=== PATIENT | female | born 1950 | race Caucasian/White ===

== ENCOUNTER 2020-02-29 07:45 | Day surgery (SDC) | payer MEDICARE, SELFPAY ==
[2020-02-27 14:33] VITALS: BMI 33.5
[2020-02-29 08:00] VITALS: BP 95/82; PULSE 89; RESP 18; TEMP 36.1; O2SAT 96
[2020-02-29] MEDS: sodium chloride 0.9% 1,000 ML 30 ML IV (08:13)
--- NOTE | 2020-02-29 08:43 | ANES.PREANE2 ---
Pre-Anesthetic Assessment Pre-Anesthetic Assessment: Height/Weight: Height 1.68 m Weight 94.347 kg Temp Pulse Resp BP Pulse Ox 97.0 F L 89 18 95/82 96 02/29/20 08:00 02/29/20 08:00 02/29/20 08:00 02/29/20 08:00 02/29/20 08:00 Preop Diagnosis: Change in bowel habit Proposed Procedure: Operation Date: 02/29/20 09:00 Proposed Procedures p Colonoscopy 43192 Z12.11(Not Applicable) - Adalberto Rangel MD Last intake: Intake Last Liquid Date 02/28/20 Last Liquid Time 20:00 Last Solid Date 02/27/20 Social: Social History: No alcohol and No tobacco Exam: Pre-Anes Outpt Exam: alert, oriented x 3, clear to auscultation bilaterally and regular rate & rhythm Airway: Submandibular: WNL Cervical ROM: WNL MP: 2 Dentition: False (upper and lower) History/ROS: No significant history except as noted Pulmonary: Pulmonary: None reported CV/HEM: CV/HEM: HTN : : None reported Hepatic: Hepatic: None reported GI: GI: GERD (controlled) Metabolic: Metabolic: Hyperlipidemia Musc/skel: Musc/skel: OA/DJD Neuropsych: Neuropsych: None reported Anesthetic Plan: ASA status: 2 Anesthesia: Anesthesia Evaluation and MAC Risk of > 500 ml blood loss (7ml/kg in children): No Meds/Allergies Current Medications: Current Medications Generic Name Dose Route Start Last Admin Trade Name Freq PRN Reason Stop Dose Admin Sodium Chloride 1,000 mls @ 30 ml s/hr 02/29/20 08:00 02/29/20 08:13 Sodium Chloride 0.9% IV 30 mls/hr .Q24H RAMAKRISHNA Administration PFSH Anesthesia PFSH: Medical History Diabetes Diarrhea Hyperlipidemia Hypertension Palpitations Surgical History S/P YODIT (total abdominal hysterectomy) 02/2013 Family History Father CAD (coronary artery disease) Chronic kidney disease (CKD) Brother CAD (coronary artery disease) Chronic kidney disease (CKD) Mother Diverticulosis Denies family history of Anesthesia complication Bleeding disorder Social History Smoking and tobacco status: never smoked Alcohol intake: never Data Anesthesia Cardiac Studies: No Data to Display
--- NOTE | 2020-02-29 09:21 | W.PM.OPSUD ---
Surgery/Procedure H&P Update DATE OF PROCEDURE: February 29, 2020 DATE H&P PERFORMED: 02/13/20 H&P UPDATE INFORMATION: I have reviewed H&P completed within last 30 days, I have examined patient prior to procedure and No changes to prior documentation PREOP DIAGNOSIS: Change in bowel habit PRIMARY INDICATION FOR PROCEDURE: The same PLANNED PROCEDURE: Operation Date: 02/29/20 09:00 Proposed Procedures p Colonoscopy 28244 Z12.11(Not Applicable) - Adalberto Rangel MD
[2020-02-29 09:38] VITALS: BP 88/64; PULSE 66; RESP 16; TEMP 36.2; O2SAT 100
--- NOTE | 2020-02-29 09:40 | ANE.PACU2 ---
Inpatient post-anesthesia follow up: Airway intact: Yes Vital signs: Temperature 97.2 F Pulse Rate 66 Respiratory Rate 16 Blood Pressure 88/64 Pulse Oximetry 100 Oxygen Delivery Me thod Nasal Cannula Oxygen Flow Rate 2.0 Fraction of Inspir ed Oxygen Hydration adequate: Yes Nausea and vomiting: No Pain level: 1 Mental status: Baseline
[2020-02-29 09:46] VITALS: BP 92/71; PULSE 69; RESP 18; O2SAT 94
== END 2020-02-29 09:55 | disposition home or self-care (01) ==
PROVIDERS: PCP Internal Medicine; Visit Provider Surgery
PROC: 0DJD8ZZ Inspection of Lower Intestinal Tract, Via Natural or Artificial Opening Endoscopic (ICD-10-PCS; CPT 45378; principal; 2020-02-29 09:00)
DX: R19.4 Change in bowel habit (principal); I10 Essential (primary) hypertension; K21.9 Gastro-esophageal reflux disease without esophagitis; E78.5 Hyperlipidemia, unspecified; M19.90 Unspecified osteoarthritis, unspecified site; E11.9 Type 2 diabetes mellitus without complications; Z79.82 Long term (current) use of aspirin
CPT/HCPCS: 12345; 82274; 83630; 87493; 87506; G0121; J2001; J2704; J7030

== ENCOUNTER 2020-05-28 13:46 | Outpatient (CLI) | payer MEDICARE, SELFPAY ==
--- NOTE | 2020-05-28 13:53 | XR_ITS ---
WS: [id number] KNEE RIGHT TECHNIQUE: 3 views of the right knee CLINICAL INFORMATION: PAIN IN RIGHT KNEE COMPARISON: None. FINDINGS: Normal anatomic alignment. Vascular calcification. Osteopenia. Hypertrophic patella. Soft tissue edema. Vascular calcification. XR/XR knee RT 3V* [id number] IMPRESSION: Mild degenerative arthritis. No acute fractures.
== END 2020-05-28 13:47 | disposition home or self-care (01) ==
LOC: RADWPI 13:49
PROVIDERS: PCP Internal Medicine; Visit Provider Internal Medicine
DX: M17.11 Unilateral primary osteoarthritis, right knee (principal)
CPT/HCPCS: 73562

== ENCOUNTER 2020-10-03 08:03 | Outpatient (CLI) | payer MEDICARE, SELFPAY ==
--- NOTE | 2020-10-03 08:23 | MM_ITS ---
WS: [id number] BILATERAL DIGITAL SCREENING MAMMOGRAPHY WITH CAD CLINICAL INFORMATION: SCREENING HISTORY: Screening mammogram. No current complaints. COMPARISON: TECHNIQUE: Bilateral CC and MLO views. FINDINGS: Scattered fibroglandular densities bilaterally. Stable nodular breast densities left breast. Stable p unctate calcifications left breast. No suspicious focal mass, asymmetry, calcifications, or computer systems software architect ural distortion. No evidence of malignancy. MM/[place] [id number] IMPRESSION: BI-RADS: 2-Benign FOLLOW UP: 1 Year Follow-up Recommend return to annual screening mammography..
== END 2020-10-03 08:04 | disposition home or self-care (01) ==
LOC: RADSHAW 08:08
PROVIDERS: PCP Internal Medicine; Visit Provider Internal Medicine
DX: Z12.31 Encounter for screening mammogram for malignant neoplasm of breast (principal)
CPT/HCPCS: 77067

== ENCOUNTER 2021-12-12 14:26 | Outpatient (CLI) | payer MEDICARE, SELFPAY ==
--- NOTE | 2021-12-12 14:40 | MM_ITS ---
WS: [id number] VIEWS: MLO and CC views both breasts. 3D digital tomosynthesis is also included in this exam. Comparison made with prior exam of 10/03/2020. Findings: There was no sign of mass, architectural distortion or suspicious calcification in either breast. Sta ble appearing nodular densities in both breasts. Scattered fibroglandular densities MM/[place] [id number] Impression: BI-RADS: 2-Benign FOLLOW-UP: 1 Year Follow-up This mammogram was also analyzed by the Computer Aided Detection System R2 Imag e Cuff Setter.
== END 2021-12-12 14:27 | disposition home or self-care (01) ==
LOC: RADSHAW 14:30
PROVIDERS: PCP Internal Medicine; Visit Provider Internal Medicine
DX: Z12.31 Encounter for screening mammogram for malignant neoplasm of breast (principal)
CPT/HCPCS: 77063; 77067

== ENCOUNTER 2022-07-23 10:04 | Outpatient (CLI) | payer MEDICARE, SELFPAY ==
--- NOTE | 2022-07-23 10:43 | XR_ITS ---
WS: [id number] Right knee, 4 views, 07/23/2022 Clinical Data: PAIN IN R KNEE Comparison: Right knee, 05/28/2020 Findings: No fractures or dislocations are seen. There is narrowing of the medial joint compartment with a spur of the medial femoral condyle and medial tibial plateau. The posterior right patella shows small spu rs.. The soft tissues are unremarkable. There is minimal vascular calcification. XR/XR knee RT 4V [id number] Impression: Mild osteoarthritis of the right knee. Kellgren-Rafy Classification: grade 1 (doubtful): doubtful joint space narr owing and possible osteophytic lipping
--- NOTE | 2022-07-23 10:43 | XR_ITS ---
WS: [id number] Right hip, AP and frog-leg views, 07/23/2022 Clinical Data: PAIN IN R HIP Comparison: None. Findings: No fractures or dislocations are seen. The hip joint is intact. The right hip shows no erosion, scler osis, narrowing or fragmentation of the right femoral head. The soft tissues are not remarkable. The adjacent pelvis is normal. XR/XR hip RT 2-3V wo/w pel* [id number] Impression: Negative right hip. Tonnis classification: grade 0: normal radiographs
== END 2022-07-23 10:05 | disposition home or self-care (01) ==
LOC: RAD 10:09
PROVIDERS: PCP Internal Medicine; Visit Provider Internal Medicine
DX: M25.551 Pain in right hip (principal); M17.11 Unilateral primary osteoarthritis, right knee
CPT/HCPCS: 73502; 73564

== ENCOUNTER 2022-08-21 15:23 | Outpatient (CLI) | payer MEDICARE, SELFPAY ==
--- NOTE | 2022-08-21 | USCV_ITS ---
Arlene Schwab Age: 71 Gender: F : 1950 Exam Date: 08/21/2022 15:57 Ordering Phys: Herminia Fonseca MD Technologist: Ramírez Barbour Exam Location: [facility] [place] Indication: right calf pain PROCEDURES: Venous duplex imaging was performed in only the right lower extremity. The following venous structures were evaluated: common femoral vein, profunda vein, proximal portion of the greater saphenous vein, superficial femoral vein, and the popliteal vein. In addition, the posterior tibial and peroneal trunk were evaluated. Serial compression, augmentation maneuvers, and spectral Doppler flow evaluation were performed. FINDINGS: Normal 2-D Doppler and augmentation and compressibility throughout the lower extremity venous structures. Additional imaging through the proximal calf veins also reveals no thrombus. Limited evaluation of the greater saphenous vein is patent with no thrombus. CONCLUSIONS No DVT right lower extremity. Dr. Esther Hardin DO (Electronically Signed) Final Date: 21 August 2022 16:18 S
== END 2022-08-21 15:24 | disposition home or self-care (01) ==
PROVIDERS: PCP Internal Medicine; Visit Provider Internal Medicine
DX: M79.661 Pain in right lower leg (principal); I83.813 Varicose veins of bilateral lower extremities with pain
CPT/HCPCS: 93971

== ENCOUNTER → 2022-12-24 09:31 | Outpatient (BNVA) | payer MEDICARE, SELFPAY | PROVIDERS: PCP Internal Medicine; Referring Provider Nurse Practitioner Family; Visit Provider Specialist | DX: M17.12 Unilateral primary osteoarthritis, left knee (principal); M25.561 Pain in right knee | CPT/HCPCS: 20610; 73560; 73565; 99204; J1100; J2795; J3301 ==

== ENCOUNTER → 2023-02-11 12:52 | Outpatient (BNVA) | payer MEDICARE, SELFPAY | PROVIDERS: PCP Internal Medicine; Visit Provider Specialist | DX: M17.12 Unilateral primary osteoarthritis, left knee (principal) | CPT/HCPCS: 99213 ==

== ENCOUNTER 2023-02-25 07:37 | Outpatient (RCR) | payer MEDICARE, SELFPAY | END 2023-03-13 23:59 | disposition home or self-care (01) | LOC: SPT 07:37 | PROVIDERS: PCP Internal Medicine; Visit Provider Specialist | DX: M25.562 Pain in left knee (principal) | CPT/HCPCS: 97110; 97161 ==

== ENCOUNTER 2023-03-14 01:00 | Outpatient (RCR) | payer MEDICARE, SELFPAY | END 2023-04-01 23:59 | disposition home or self-care (01) | LOC: SPT 01:00 | PROVIDERS: PCP Internal Medicine; Visit Provider Specialist | DX: M25.562 Pain in left knee (principal) | CPT/HCPCS: 97110 ==

== ENCOUNTER → 2023-04-23 15:09 | Outpatient (BNVA) | payer MEDICARE, SELFPAY | PROVIDERS: PCP Internal Medicine; Visit Provider Specialist | DX: M17.12 Unilateral primary osteoarthritis, left knee (principal) | CPT/HCPCS: 20610; J1100; J2795; J3301 ==

== ENCOUNTER → 2023-05-20 09:41 | Outpatient (BNVA) | payer MEDICARE, SELFPAY | PROVIDERS: PCP Internal Medicine; Visit Provider Nurse Practitioner Family | DX: M25.562 Pain in left knee; M25.561 Pain in right knee; M54.10 Radiculopathy, site unspecified | CPT/HCPCS: 73560; 73565; 99213 ==

== ENCOUNTER 2023-07-01 10:35 | Outpatient (CLI) | payer MEDICARE, SELFPAY | END 2023-07-01 10:36 | disposition home or self-care (01) | LOC: SPT 10:36 | PROVIDERS: PCP Internal Medicine; Visit Provider Nurse Practitioner | DX: Z46.89 Encounter for fitting and adjustment of other specified devices (principal); M17.0 Bilateral primary osteoarthritis of knee | CPT/HCPCS: 20610; 97760; 99214; L1812 ==

== ENCOUNTER → 2023-08-13 08:27 | Outpatient (BNVA) | payer MEDICARE, SELFPAY | PROVIDERS: PCP Internal Medicine; Visit Provider Specialist | DX: M17.12 Unilateral primary osteoarthritis, left knee; Z71.89 Other specified counseling | CPT/HCPCS: 20610; J1100; J2795; J3301 ==

== ENCOUNTER 2023-09-03 08:10 | Outpatient (CLI) | payer MEDICARE, SELFPAY ==
--- NOTE | 2023-09-03 | ECG_ITS ---
[facility] Test Date: 2023-09-03 Pat Name: Arlene Schwab Department: Room: Gender: Female Clinical Social Work Aide: Berto Montano : 1950 Requested By: Herminia Hair Order Number: [id number] Zen MD: Abilio Jack M.D. Interpretive Statements NAME OF STUDY: LEXISCAN SESTAMIBI STRESS TEST INDICATION: Abnormal ekg, PROCEDURE: At the baseline, the EKG revealed normal sinus rhythm with a normal ST Ts. Poor R wave progression. The baseline heart was 79 bpm with a blood pressue of 180/114 mm of Hg Lexiscan was infused over a period of 20 seconds. A total of 0.4 milligrams of Lexiscan was infused. The stress phase was continued for a total of 5 minutes. Heart rate at the end of the stress phase was 105 bpm with a blood pressure 132/75 mm of Hg. The EKG at the peak infusion revealed no significant changes. Sestamibi was injected 20 seconds after the Lexiscan infusion. Heart rate at the end of the recovery phase was 100 bpm with a blood pressure of 147/88 mm of Hg. CONCLUSION: 1. No significant EKG changes with the LexiScan infusion 2. No LexiScan induced chest pain or cardiac arrhythmia 3. Normal blood pressure and heart rate response 4. Sestamibi/sestamibi perfusion scan pending; see separate report. Electronically Signed On 09-14-2023 17:15:53 HYPOID GEAR GENERATOR by Abilio Jack M.D. [id number]
[2023-09-03 08:24] VITALS: BMI 32.3
--- NOTE | 2023-09-03 08:25 | NMCV_ITS ---
NM shruti perf SPECT r/s* [id number] Arlene Schwab Age: 72 Gender: F : 1950 Exam Date: 09/03/2023 09:00 Ordering Phys: Herminia Fonseca MD Technologist: JESSICA Lyon Exam Location: [facility] Indications: Abnormal EKG STRESS TEST Please see separate stress test report in [facility] for full findings IMAGE PROTOCOL Rest/Stress 1 Lexiscan Day Radiopharmaceutical Dose (mCi) Administration Site Administered by Rest: Tc-99m 10.6 IV JESSICA Lyon Sestamibi Stress:Tc-99m 32.7 IV JESSICA Lyon Sestamibi Rest: 03-Sep-2023 60 Discovery 630 Stress: 03-Sep-2023 30 Discovery 630 0.4mg Lexiscan. Supine position only as patient was unable to lay prone. SPECT RESULTS Technical Quality: Good Raw Data Analysis: Normal Image Corrections: No attenuation or motion correction applied Summed Stress Score: 1 Summed Rest Score: 5 Summed Difference Score: 0 PERFUSION FINDINGS Small area of slightly decreased tracer uptake was noted in the mid inferolateral region with no significant reversibility. FUNCTIONAL RESULTS (calculated via Gated SPECT) Stress Image LV EF (%): 81 Stress EDV (mL):57 TID: 0.92 Stress ESV (mL):11 FUNCTIONAL FINDINGS: Segmental wall motion analysis revealing no gross wall motion abnormalities IMPRESSIONS 1. Myocardial perfusion imaging revealing small area of persistent decreased tracer uptake in the mid inferolateral region suggestive of myocardial scarring versus attrition artifact 2. Normal LV ejection fraction of 81%. 3. LV wall motion analysis revealing no gross wall motion abnormalities. 4. Normal LV volume Low probability for coronary ischemia, based on the above findings No similar previous studies are available for comparison Dr Abilio Jack MD [facility] (Electronically Signed) Final Date: 03 September 2023 14:06 S
[2023-09-03] MEDS: regadenoson 0.4 Mg/5 ml Syringe IVP (09:46)
[2023-09-03 10:01] VITALS: BP 147/88; PULSE 99
== END 2023-09-03 08:11 | disposition home or self-care (01) ==
PROVIDERS: PCP Internal Medicine; Visit Provider Internal Medicine
DX: R94.31 Abnormal electrocardiogram [ECG] [EKG] (principal)
CPT/HCPCS: 36415; 78452; 93017; 96374; A9500; J2785

== ENCOUNTER → 2023-11-06 10:35 | Outpatient (BNVA) | payer MEDICARE, SELFPAY | PROVIDERS: PCP Internal Medicine; Visit Provider Specialist | DX: M17.12 Unilateral primary osteoarthritis, left knee (principal) | CPT/HCPCS: 20610; J1100; J2795; J3301 ==

== ENCOUNTER → 2024-02-05 07:45 | Outpatient (BNVA) | payer MEDICARE, SELFPAY | PROVIDERS: PCP Internal Medicine; Visit Provider Specialist | DX: M25.562 Pain in left knee (principal); M17.12 Unilateral primary osteoarthritis, left knee | CPT/HCPCS: 20610; J1100; J2795; J3301 ==

== ENCOUNTER → 2024-05-13 07:37 | Outpatient (BNVA) | payer MEDICARE, SELFPAY | PROVIDERS: PCP Internal Medicine; Visit Provider Specialist | DX: M17.12 Unilateral primary osteoarthritis, left knee (principal); Z71.89 Other specified counseling | CPT/HCPCS: 20610; J1100; J2795; J3301 ==

== ENCOUNTER → 2024-08-26 07:42 | Outpatient (BNVA) | payer MEDICARE, SELFPAY | PROVIDERS: PCP Internal Medicine; Visit Provider Specialist | DX: M17.12 Unilateral primary osteoarthritis, left knee (principal) | CPT/HCPCS: 20610; J1100; J2795; J3301 ==

== ENCOUNTER → 2024-09-21 11:18 | Outpatient (BNVA) | payer MEDICARE, SELFPAY | PROVIDERS: PCP Internal Medicine; Visit Provider Specialist | DX: M17.11 Unilateral primary osteoarthritis, right knee (principal) | CPT/HCPCS: 73560; 73565; 99214 ==